=== PATIENT | female | born 1965 | race Hispanic/Latino ===

== ENCOUNTER 2021-06-01 07:27 | Outpatient (CLI) | payer BC | END 2021-06-01 07:28 | disposition home or self-care (01) | LOC: BICMRI 07:27 | PROVIDERS: ATTEND Specialist | DX: M51.16 Intervertebral disc disorders with radiculopathy, lumbar region (principal); M47.26 Other spondylosis with radiculopathy, lumbar region | CPT/HCPCS: 72148 ==